=== PATIENT | male | born 1990 | race Caucasian/White ===

== ENCOUNTER 2019-09-09 20:17 | Inpatient (IN) | payer BC, OTHER, SELFPAY ==
[2019-09-09] MEDS ORDERED: LIDOCAINE 1% MPF 5 ML VIAL ONE (21:08)
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
[2019-09-09] MEDS ORDERED: CIPROFLOXACIN 400mg IV 400 MG/200 ML BAG IV ONE (21:30)
[2019-09-09] MEDS ORDERED: TETANUS & DIPHTHERIA TOX,ADULT 0.5 ML VIAL ONE (21:36)
[2019-09-09] MEDS ORDERED: FENTANYL CITR 100 MCG/2 ML ONE (21:36)
[2019-09-09] MEDS ORDERED: ONDANSETRON 4 MG/2 ML VIAL ONE (21:37)
[2019-09-09 21:43] LABS: Absolute Lymphocytes (CBC) 1.4 K/uL (0.7-4.9); Basophils % 0.6 % (0-1.3); Hematocrit 47.8 % (39.6-49.0); Lymphocytes % 16.7 % (15.3-44.8); MPV 8.4 fL (7.6-11.3); RBC Red Blood Cell Count 5.37 M/uL (4.33-5.43)
--- NOTE | 2019-09-09 21:57 | RAD REPORT ---
EXAM DESCRIPTION: RAD - Foot Left 3 View - 09/09/2019 9:15 pm CLINICAL HISTORY: laceration. R/O FB Pain and swelling laceration COMPARISON: No comparisons FINDINGS: Laterally located soft tissue laceration seen. Multiple radiopaque foreign bodies are pres ent in the lateral plantar soft tissues in the region. No fracture evident.
[2019-09-09 22:04] LABS: BUN Blood Urea Nitrogen 16 mg/dL (7-18); Bicarbonate 23 mmol/L (21-32); Glucose Level 92 mg/dL (74-106); Potassium 4.1 mmol/L (3.5-5.1); Sodium Level 139 mmol/L (136-145)
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
[2019-09-10] MEDS ORDERED: ONDANSETRON 4 MG/2 ML VIAL IV PRN (00:33)
[2019-09-10 00:40] VITALS: BMI 38.2
[2019-09-10] MEDS: MORPHINE 2 MG/ML SYR IV PRN ×4 (01:01→16:36)
[2019-09-10] MEDS: Levofloxacin 750mg IV 750 MG/150 ML BAG IV SCH (01:01)
[2019-09-10] MEDS: NA CHLORIDE 0.9% 1,000 ML IV SCH ×3 (01:01→17:42)
[2019-09-10 02:01] LABS: Urine Appearance CLEAR; Urine Bilirubin NEGATIVE (NEG); Urine Blood NEGATIVE (NEG); Urine Color YELLOW; Urine Glucose NEGATIVE (NEG); Urine Protein NEGATIVE (NEG); Urine Specific Gravity 1.025 (1.005-1.030); Urine Urobilinogen 0.2 mg/dL (0.2-1.0)
[2019-09-10 02:02] LABS: Urine Microscopic Reflex NO UMIC
[2019-09-10 05:20] LABS: Protime INR 1.16
[2019-09-10 05:27] LABS: Basophils % 0.4 % (0-1.3); Hematocrit 43.9 % (39.6-49.0); Lymphocytes % 20.4 % (15.3-44.8); MPV 8.4 fL (7.6-11.3); RBC Red Blood Cell Count 4.92 M/uL (4.33-5.43)
[2019-09-10 05:38] LABS: BUN Blood Urea Nitrogen 16 mg/dL (7-18); Bicarbonate 27 mmol/L (21-32); Glucose Level 92 mg/dL (74-106); Phosphorus 4.1 mg/dL (2.5-4.9); Potassium 4.5 mmol/L (3.5-5.1); Sodium Level 139 mmol/L (136-145)
[2019-09-10] MEDS ORDERED: Pharmacy Consult 1 EA XX PRN (11:17)
--- NOTE | 2019-09-10 11:18 | P.PN ---
Subjective Date of Service: 09/10/19 (Hospitalist) Chief Complaint: Laceration to the left foot Subjective: Improving (Patient's condition is stable he is awaiting plastic surgery consult and a laceration to his foot) Review of Systems 10-point ROS is otherwise unremarkable Physical Examination - Vital Signs Temperature: 97.3 F Blood Pressure: 126/90 Pulse: 82 Respirations: 18 Pulse Ox (%): 97 - Physical Exam General: Alert, In no apparent distress, Oriented x3 Respiratory: Clear to auscultation bilaterally Cardiovascular: No edema, Regular rate/rhythm, Normal S1 S2 Gastrointestinal: Normal bowel sounds Integumentary: Other (Left foot wrapped in bandages) - Studies Laboratory Data (last 24 hrs) 09/09/19 21:24: Sodium 139, Potassium 4.1, BUN 16, Creatinine 0.87, Glucose 92 09/09/19 21:24: WBC 8.5, Hgb 16.1, Hct 47.8, Plt Count 241 Assessment & Plan - Problems (Diagnosis) (1) Foreign body (FB) in soft tissue Current Visit: Yes Status: Acute Plan: Patient is 29 years of age from prior medical problems admitted with laceration of the left foot awaiting plastic surgery console vital signs are stable x-ray reviewed calcium foreign body patient is on levofloxacin add vancomycin no evidence of active sepsis
[2019-09-10] MEDS: VANCOMYCIN 2 GM in NA CHLORIDE 0.9% 500 ML IVPB SCH (12:41)
[2019-09-10] MEDS ORDERED: FENTANYL CITR 100 MCG/2 ML ONE ×2 (14:37→15:06)
[2019-09-10] MEDS ORDERED: MIDAZOLAM HCL 2 MG/2 ML INJ ONE (14:37)
[2019-09-10] MEDS ORDERED: propofoL 200 MG/20 ML VIAL IV ONE (14:37)
[2019-09-10 15:40] VITALS: O2SAT 100
[2019-09-10] MEDS: HYDROMORPHONE HCL 1 MG/ML INJ ONE ×2 (15:45→15:50)
[2019-09-10] MEDS ORDERED: ONDANSETRON 4 MG/2 ML VIAL ONE (15:48)
[2019-09-10] MEDS ORDERED: KETOROLAC 30 MG/ML INJ ONE (16:06)
[2019-09-11] MEDS: Levofloxacin 750mg IV 750 MG/150 ML BAG IV SCH
[2019-09-11] MEDS: VANCOMYCIN 2 GM in NA CHLORIDE 0.9% 500 ML IVPB SCH (00:01)
--- NOTE | 2019-09-11 02:49 | OP ---
Surgeon: Terrance Duque MD Preoperative Diagnosis: Open wound, right and left foot. Postoperative Diagnosis: Open wound, right and left foot. Procedure Performed: Debridement of skin and subcutaneous tissue of the right and left foot, remove foreign body of the left foot and simple closure of left. Anesthesia: General. Procedure In Detail: After satisfactory induction of general anesthesia, the feet were prepped with Betadine scrub, Betadine paint, dry sterile drapes applied in the usual manner. A scalpel was used t o excise skin and subcutaneous tissue and the laceration of both feet. The wounds were curetted and the foreign body was removed from the left foot and the wound was jet lavaged, irrigated with 3 L of Betadine solution. The right foot was closed completely with 3-0 Prolene, left foot partially with 3 -0 Prolene. . Dressed with Xeroform, Kerlix. The patient tolerated the procedure well and returned to Recovery. ENEDELIA/RHINA Voice ID: [id number] Report ID: [id number]
[2019-09-11] MEDS: NA CHLORIDE 0.9% 1,000 ML IV SCH (06:33)
[2019-09-11] MEDS: MORPHINE 2 MG/ML SYR IV PRN (06:41)
--- NOTE | 2019-09-11 10:13 | P.PN ---
Subjective Date of Service: 09/11/19 Chief Complaint: Debridement of both feet Subjective: Improving (Patient is doing well no complaints slight tear discomfort) Review of Systems Unremarkable Physical Examination - Vital Signs Temperature: 97.7 F Blood Pressure: 104/66 Pulse: 79 Respirations: 17 Pulse Ox (%): 100 - Physical Exam General: Alert, In no apparent distress, Oriented x3 Respiratory: Clear to auscultation bilaterally Cardiovascular: No edema, Regular rate/rhythm Assessment & Plan - Problems (Diagnosis) (1) Foreign body (FB) in soft tissue Current Visit: Yes Status: Acute Plan: Patient is status post a bride meant of both feet discussed with plastic surgery patient can be discharged home on levofloxacin and doxycycline for 7 days patient to follow up in a week is vital signs are all stable Discharge Plan: Home
--- NOTE | 2019-09-11 10:16 | P.DS ---
Admission Date: 09/09/19 (Hospitalist) Discharge Date: 09/11/19 Disposition: ROUTINE DISCHARGE Discharge Condition: FAIR Reason for Admission: Debridement of both feet - Problems (1) Foreign body (FB) in soft tissue Current Visit: Yes Status: Acute Brief History of Present Illness: Patient is 29 years of age admitted with laceration underwent a bride meant of both feet Hospital Course: He did well no new complaints discuss with plastic surgery can be discharged home on level Floxin and doxycycline vital signs stable at the time of discharge he was alert oriented responsive cooperative with ambulate prior to discharge vital signs stable afebrile to follow-up with lost 6 add Vital Signs/Physical Exam: Temp Pulse Resp BP Pulse Ox 97.7 F 79 17 104/66 100 09/11/19 10:13 09/11/19 10:13 09/11/19 10:13 09/11/19 10:13 09/11/19 10:13 Laboratory Data at Discharge: WBC 9.7 K/uL (4.3-10.9) D 09/10/19 04:28 Hgb 14.9 g/dL (13.6-17.9) 09/10/19 04:28 Hct 43.9 % (39.6-49.0) 09/10/19 04:28 Plt Count 222 K/uL (152-406) 09/10/19 04:28 PT 13.6 SECONDS (9.5-12.5) H 09/10/19 04:28 INR 1.16 09/10/19 04:28 Sodium 139 mmol/L (136-145) 09/10/19 04:28 Potassium 4.5 mmol/L (3.5-5.1) 09/10/19 04:28 BUN 16 mg/dL (7-18) 09/10/19 04:28 Creatinine 0.92 mg/dL (0.55-1.3) 09/10/19 04:28 Glucose 92 mg/dL (74-106) 09/10/19 04:28 Phosphorus 4.1 mg/dL (2.5-4.9) 09/10/19 04:28 Phosphorus Cancelled 09/10/19 04:28 Magnesium 2.0 mg/dL (1.8-2.4) 09/10/19 04:28 Magnesium Cancelled 05/01/20 04:28 Home Medications: Doxycycline Hyclate 100 mg PO BID #14 tablet 09/11/19 Levofloxacin [Levaquin] 500 mg PO DAILY 7 Days #7 tablet 09/11/19 New Medications: Doxycycline Hyclate 100 mg PO BID #14 tablet Levofloxacin [Levaquin] 500 mg PO DAILY 7 Days #7 tablet Patient Discharge Instructions: Patient to call a follow-up with plastic surgery this week. Antibiotic faxed to the pharmacy Diet: Regular
[2019-09-11 11:46] LABS: Hematocrit 41.9 % (39.6-49.0); MPV 8.6 fL (7.6-11.3); RBC Red Blood Cell Count 4.73 M/uL (4.33-5.43)
[2019-09-11 13:10] VITALS: BP 144/70; TEMP 97.5
[2019-09-11] MEDS ORDERED: DOXYCYCLINE 100 MG CAP PO SCH (21:00)
[2019-09-12] MEDS ORDERED: levoFLOXacin 250 MG TAB PO SCH (09:00)
== END 2019-09-11 13:13 | disposition home or self-care (01) | DRG 903 ==
LOC: ER 20:17 → 2ND 23:52 → OBSVTOIN 23:52 → INTOOBSV 23:52 → OBSVTOIN 09-10 12:59
PROVIDERS: ADMIT Internal Medicine; ATTEND Internal Medicine Sleep Medicine
PROC: 0JBQ0ZZ Excision of Right Foot Subcutaneous Tissue and Fascia, Open Approach (ICD-10-PCS; 2019-09-10)
PROC: 0JBR0ZZ Excision of Left Foot Subcutaneous Tissue and Fascia, Open Approach (ICD-10-PCS; principal; 2019-09-10 16:15)
DX: S91.322A Laceration with foreign body, left foot, initial encounter (principal); S91.311A Laceration without foreign body, right foot, initial encounter; F17.200 Nicotine dependence, unspecified, uncomplicated; E66.9 Obesity, unspecified; Z68.38 Body mass index [BMI] 38.0-38.9, adult
CPT/HCPCS: 36415; 80048; 81003; 83735; 84100; 85025; 85027; 85610; 88304; 90471; 90714; 96365; 96375; 99285; J0744; J1170; J2250; J2270; J2405; J2704; J3010; J7030; J7040

== ENCOUNTER 2019-09-21 07:30 | Day surgery (SDC) | payer BC ==
[2019-09-21] MEDS ORDERED: LIDOCAINE 1% MPF 5 ML VIAL ONE (07:49)
[2019-09-21] MEDS ORDERED: propofoL 200 MG/20 ML VIAL IV ONE ×2 (07:49→09:13)
[2019-09-21] MEDS ORDERED: FENTANYL CITR 100 MCG/2 ML ONE ×2 (07:49→09:13)
[2019-09-21] MEDS ORDERED: MIDAZOLAM HCL 2 MG/2 ML INJ ONE ×2 (07:49→09:13)
[2019-09-21] MEDS ORDERED: Ringers Lactate 1,000 ML IV ONE (08:10)
[2019-09-21] MEDS ORDERED: CEFAZOLIN/SWI 1gm 1 GM/10 ML SYR ONE (08:10)
[2019-09-21] MEDS ORDERED: dexAMETHasone 10 MG/ML VIAL ONE (09:14)
[2019-09-21] MEDS ORDERED: LIDOCAINE 2% MPF 5 ML VIAL ONE (09:14)
[2019-09-21] MEDS ORDERED: KETOROLAC 30 MG/ML INJ ONE (09:51)
[2019-09-21] MEDS: HYDROMORPHONE HCL 1 MG/ML INJ ONE ×2 (10:15→10:25)
[2019-09-21] MEDS ORDERED: ONDANSETRON 4 MG/2 ML VIAL ONE (10:21)
[2019-09-21 10:46] VITALS: TEMP 97.1
[2019-09-21 12:55] VITALS: O2SAT 99
[2019-09-21 12:58] VITALS: BP 133/95
--- NOTE | 2019-09-21 19:54 | OP ---
Surgeon: Terrance Duque MD Ems Manager: None. Preoperative Diagnosis: Open wound, left foot. Postoperative Diagnosis: Open wound, left foot. Procedure Performed: Debridement of skin and subcutaneous tissue, simple closure 4 cm wound. Anesthesia: General. Procedure In Detail: After satisfactory induction of general anesthesia left leg was prepped with Be tadine scrub, Betadine paint, dry sterile drapes applied in the usual manner. Curette was used to de bride skin and subcu tissue as needed. The wound was jet lavaged, irrigated, dense skin debrided wit h forceps and scissors. The wound was then closed with 3-0 Prolene simple sutures. Dressed with Xer oform, 2 inch Venus and Kerlix. The patient tolerated the procedure well and returned to Recovery. ENEDELIA/RHINA Voice ID: [id number] Report ID: [id number]
== END 2019-09-21 11:40 | disposition home or self-care (01) ==
LOC: OR 07:30
PROVIDERS: ATTEND Specialist
PROC: 0JQR0ZZ Repair Left Foot Subcutaneous Tissue and Fascia, Open Approach (ICD-10-PCS; principal; 2019-09-21 09:00)
DX: S91.302A Unspecified open wound, left foot, initial encounter (principal); E66.9 Obesity, unspecified; Z68.37 Body mass index [BMI] 37.0-37.9, adult
CPT/HCPCS: 12002; J2704; J2250; J3010; J1100; J1170; J0690; J7120; J2405

== ENCOUNTER 2020-08-14 08:35 | Emergency (ER) | payer BC, OTHER ==
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
[2020-08-14] MEDS ORDERED: LIDOCAINE 1% W/EPI 1:100,000 MDV 20 ML VIAL ONE (10:10)
--- NOTE | 2020-08-14 10:29 | EDPHYS ---
Physician Documentation [facility] Name: Yrn Diaz Age: 30 yrs Sex: Male : 1990 Arrival Date: 08/14/2020 Time: 08:38 Bed 4 Private MD: ED Physician César Velazquez HPI: 08/14 09:48 This 30 yrs old Male presents to ER via Wheelchair with complaints of Head kb Injury-Adult. 09:48 The patient or guardian reports a laceration, 3 cm(s), clean. The complaints affect the kb right side of forehead. Context of injury: The problem was sustained outdoors, resulted from a fall. Onset: The symptoms/episode began/occurred just prior to arrival. Associated signs and symptoms: Loss of consciousness: This patient did not experience any loss of consciousness. Pertinent positives: dazed, injury, Pertinent negatives: the patient has not experienced a loss of conciousness, patient denies any alcohol consumption, nausea, neck pain, seizure, vomiting, generalized weakness. Severity of symptoms: At their worst the symptoms were moderate, in the emergency department the symptoms are unchanged. The patient has not experienced similar symptoms in the past. The patient has not recently seen a physician. Pt reports he was getting gas on his boat and when he jumped down to the inside he slipped causing him to fall and hit head on an inner part of the boat. States he was dazed when it happened, but denies LOC and states he is feeling normal at this time. . Historical: - Allergies: 08:45 No Known Allergies; iw - Home Meds: 08:45 None [Active]; iw - PMHx: 08:45 None; iw - PSHx: 08:45 eye surgery as a child; foot; iw - Immunization history:: Last tetanus immunization: up to date. - Social history:: Smoking status: . ROS: 09:47 Constitutional: Negative for fever, chills, and weight loss, Eyes: Negative for injury, kb pain, redness, and discharge, Respiratory: Negative for shortness of breath, cough, wheezing, and pleuritic chest pain, Abdomen/GI: Negative for abdominal pain, nausea, vomiting, diarrhea, and constipation, Neuro: Negative for headache, weakness, numbness, tingling, and seizure. 09:47 Skin: Positive for laceration(s), of the right side of forehead. Exam: 09:48 Constitutional: This is a well developed, well nourished patient who is awake, alert, kb and in no acute distress. Respiratory: Respirations even and unlabored. No increased work of breathing, no retractions or nasal flaring. MS/ Extremity: Pulses equal, no cyanosis. Neurovascular intact. Full, normal range of motion. Neuro: Awake and alert, GCS 15, oriented to person, place, time, and situation. Moves all extremities. Normal gait. 09:48 Head/face: Noted is no obvious of injury or deformity except hematoma, that is moderate, of the right side of forehead, a laceration(s), that is superficial, 3 cm(s), of the right side of forehead. 09:48 Skin: injury, laceration(s), the wound is approximately 3 cm(s), of the right side of forehead, that can be described as clean, no foreign body, irregular, with moderate bleeding. Vital Signs: 08:41 Pulse 82; Resp 16; Pulse Ox 100% on R/A; iw 08:45 BP 155 / 105; Pulse 66; Resp 17; Pulse Ox 99% on R/A; tw2 10:00 BP 146 / 86; Pulse 64; Resp 16; Pulse Ox 99% on R/A; hb 10:51 BP 141 / 79; Pulse 71; Pulse Ox 99% on R/A; sr5 [place] Coma Score: 09:47 Eye Response: spontaneous(4). Verbal Response: oriented(5). Motor Response: obeys kb commands(6). Total: 15. 09:48 Eye Response: spontaneous(4). Verbal Response: oriented(5). Motor Response: obeys kb commands(6). Total: 15. Laceration: 10:27 Wound Repair of 3cm ( 1.2in ) subcutaneous laceration to right side of forehead. Linear kb shaped.. Distal neuro/vascular/tendon intact. Anesthesia: Wound infiltrated with 4 mls of 1% lidocaine w/ Epi. Wound prep: Extensive cleansing with hibiclenz by me, Wound irrigation with saline by md. Skin closed with 8 5-0 fast absorbing gut using simple sutures and sterile technique. Patient tolerated well. MDM: 09:05 Patient medically screened. kb 09:47 Data reviewed: vital signs, nurses notes. Data interpreted: Pulse oximetry: on room air kb is 100 %. Interpretation: normal. Counseling: I had a detailed discussion with the patient and/or guardian regarding: the historical points, exam findings, and any diagnostic results supporting the discharge/admit diagnosis, radiology results, the need for outpatient follow up, a family practitioner, to return to the emergency department if symptoms worsen or persist or if there are any questions or concerns that arise at home. 10:27 ED course: one internal sutures, 7 external sutures. kb 08/14 08:41 Order name: CT Head Brain wo Cont; Complete Time: 09:26 iw 08/14 09:43 Order name: Dressing - Wound; Complete Time: 10:50 kb 08/14 09:43 Order name: Gloves, Sterile; Complete Time: 09:55 kb 08/14 09:43 Order name: Setup Suture Tray; Complete Time: 09:55 kb Administered Medications: 09:55 Drug: Lidocaine-Epinephrine -1%: (1:100,000) 1 vials {Note: by ISABELL Guerrero.} Volume: 20 tw2 ml; Route: Infiltration; Disposition: 15:12 Co-signature as Attending Physician, César Velazquez MD. rn Disposition: 08/14/20 10:28 Discharged to Home. Impression: Superficial injury of head, Laceration without foreign body of scalp. - Condition is Stable. - Discharge Instructions: Hematoma, Olvm-[id number], Laceration Care, Adult, [id number], Head Injury, Adult, [id number]. - Medication Reconciliation Form, Thank You Letter, Antibiotic Education, Prescription Opioid Use form. - Follow up: Emergency Department; When: As needed; Reason: Worsening of condition. Follow up: Private Physician; When: 2 - 3 days; Reason: Recheck today's complaints, Continuance of care, Re-evaluation by your physician. Signatures: Dispatcher [employer] Yolanda Casanova FNP-C FNP-Elissa Romero, César Bryson RN, MD MD rn Baxter, Heather, RN RN hb Wise, Tara, RN RN tw2 Corrections: (The following items were deleted from the chart) 09:51 09:48 Head/face: Noted is no obvious of injury or deformity except a laceration(s), kb that is superficial, 3 cm(s), of the right side of forehead, kb 09:51 09:48 Skin: injury, laceration(s), the wound is approximately 3 cm(s), of the right kb side of forehead, that can be described as clean, no foreign body, irregular, with moderate bleeding, kb 10:55 10:28 08/14/2020 10:28 Discharged to Home. Impression: Superficial injury of head; hb Laceration without foreign body of scalp. Condition is Stable. Forms are Medication Reconciliation Form, Thank You Letter, Antibiotic Education, Prescription Opioid Use. Follow up: Emergency Department; When: As needed; Reason: Worsening of condition. Follow up: Private Physician; When: 2 - 3 days; Reason: Recheck today's complaints, Continuance of care, Re-evaluation by your physician. kb
--- NOTE | 2020-08-14 10:29 | ER ---
Nurse's Notes [facility] Name: Yrn Diaz Age: 30 yrs Sex: Male : 1990 Arrival Date: 08/14/2020 Time: 08:38 Bed 4 Private MD: Diagnosis: Superficial injury of head;Laceration without foreign body of scalp Presentation: 08/14 08:41 Chief complaint: Patient states: was attempting to put gas in his boat, stepped out and iw hit head against his boat, laceration to right side of head , pt denies LOC but states he was stunned. Coronavirus screen: At this time, the client does not indicate any symptoms associated with coronavirus-19. Ebola Screen: Patient negative for fever greater than or equal to 101.5 degrees Fahrenheit, and additional compatible Ebola Virus Disease symptoms Patient denies exposure to infectious person. Patient denies travel to an Ebola-affected area in the 21 days before illness onset. No symptoms or risks identified at this time. Initial Sepsis Screen: Does the patient meet any 2 criteria? No. Patient's initial sepsis screen is negative. Does the patient have a suspected source of infection? No. Patient's initial sepsis screen is negative. Risk Assessment: Do you want to hurt yourself or someone else? Patient reports no desire to harm self or others. Onset of symptoms was August 14, 2020. 08:41 Method Of Arrival: Wheelchair 08:41 Acuity: CARON 3 iw Historical: - Allergies: 08:45 No Known Allergies; iw - Home Meds: 08:45 None [Active]; iw - PMHx: 08:45 None; iw - PSHx: 08:45 eye surgery as a child; foot; iw - Immunization history:: Last tetanus immunization: up to date. - Social history:: Smoking status: . Screenin:46 Abuse screen: Denies threats or abuse. Denies injuries from another. Nutritional hb screening: No deficits noted. Tuberculosis screening: No symptoms or risk factors identified. Fall Risk None identified. Assessment: 08:55 General: Appears in no apparent distress. Behavior is calm, cooperative. Pain: Pain hb currently is 6 out of 10 on a pain scale. Neuro: Level of Consciousness is awake, alert, obeys commands, Oriented to person, place, time, situation. Cardiovascular: Patient's skin is warm and dry. Respiratory: Respiratory effort is even, unlabored, Respiratory pattern is regular, symmetrical. GI: No signs and/or symptoms were reported involving the gastrointestinal system. : No signs and/or symptoms were reported regarding the genitourinary system. EENT: No signs and/or symptoms were reported regarding the EENT system. Derm: Skin is pink, warm \T\ dry. Musculoskeletal: No signs and/or symptoms reported regarding the musculoskeletal system. Injury Description: Laceration sustained to right side of forehead is full thickness, 2.6 to 7.5 cm long, bleeding moderately, with pulsatile bleeding. 09:45 Reassessment: Patient appears in no apparent distress at this time. Patient and/or hb family updated on plan of care and expected duration. Pain level reassessed. Patient is alert, oriented x 3, equal unlabored respirations, skin warm/dry/pink. 10:12 Reassessment: RACHEL Guerrero at bedside for laceration repair. hb 10:52 Reassessment: Pt AA\T\Ox4, ZHAO, equal unlabored resp, skin warm/dry/nc, wound care sr5 provided using NS, bandage applied. Discharge instructions provided: head injury and wound care. Steady gait out of ER. Vital Signs: 08:41 Pulse 82; Resp 16; Pulse Ox 100% on R/A; iw 08:45 BP 155 / 105; Pulse 66; Resp 17; Pulse Ox 99% on R/A; tw2 10:00 BP 146 / 86; Pulse 64; Resp 16; Pulse Ox 99% on R/A; hb 10:51 BP 141 / 79; Pulse 71; Pulse Ox 99% on R/A; sr5 [place] Coma Score: 09:47 Eye Response: spontaneous(4). Verbal Response: oriented(5). Motor Response: obeys kb commands(6). Total: 15. 09:48 Eye Response: spontaneous(4). Verbal Response: oriented(5). Motor Response: obeys kb commands(6). Total: 15. ED Course: 08:38 Patient arrived in ED. bd 08:44 Triage completed. iw 08:45 Lorena Hunter, RN is Primary Nurse. hb 08:45 Arm band placed on. hb 08:46 Patient has correct armband on for positive identification. Bed in low position. Call hb light in reach. 09:00 CT Head Brain wo Cont In Process Unspecified. EDMS 09:05 Yolanda Xiao FNP-C is [facility]. kb 09:05 César Velazquez MD is Attending Physician. kb 10:51 Patient did not have IV access during this emergency room visit. Dressings: Band aid x sr5 1 right side of forehead. 10:52 Pulse ox on. NIBP on. sr5 10:52 Assist provider with laceration repair on right side of forehead using sutures. sr5 Performed by Yolanda EDDY Dressed with band aid, Neosporin, Patient tolerated well. Administered Medications: 09:55 Drug: Lidocaine-Epinephrine -1%: (1:100,000) 1 vials {Note: by FNP. Yolanda} Volume: 20 tw2 ml; Route: Infiltration; Outcome: 10:28 Discharge ordered by MD. kb 10:52 Discharged to home ambulatory. sr5 10:52 Condition: stable 10:52 Discharge instructions given to patient, Instructed on discharge instructions, follow up and referral plans. wound care, head injury Demonstrated understanding of instructions, follow-up care, wound care, head injury precautions 10:55 Patient left the ED. hb Signatures: Dispatcher [employer] EDMS Yolanda Xiao FNP-C FNP-Ckb Dirrim, Barbara bd Williams, Irene, EDILMA FRANCE Lorena Hunter RN RN Nhung Saucedo RN RN tw2 Brando Iqbal RN RN sr5 Corrections: (The following items were deleted from the chart) 08:45 08:41 Acuity: CARON 4 [facility]
[2020-08-14 12:26] VITALS: O2SAT 100
== END 2020-08-14 10:55 | disposition home or self-care (01) ==
LOC: ER 08:35
PROC: 0HQ1XZZ Repair Face Skin, External Approach (ICD-10-PCS; principal; 2020-08-14)
DX: S01.81XA Laceration without foreign body of other part of head, initial encounter (principal); V93.33XA Fall on board other powered watercraft, initial encounter
CPT/HCPCS: 70450; 99284

== ENCOUNTER 2022-11-24 17:43 | Emergency (ER) | payer BC ==
[2022-11-24] MEDS ORDERED: LIDOCAINE 2% MPF 5 ML VIAL ONE (19:05)
--- NOTE | 2022-11-24 19:31 | ER ---
Nurse's Notes [facility] Name: Yrn Diaz Age: 32 yrs Sex: Male : 1990 Arrival Date: 11/24/2022 Time: 17:43 Bed 23 Private MD: Vikas Joyce Diagnosis: Laceration without foreign body of left thumb without damage to nail, initial encounter Presentation: 11/24 18:05 Chief complaint: Patient states: was using my pocket knife, cut the corner of my left iw thumb. Coronavirus screen: At this time, the client does not indicate any symptoms associated with coronavirus-19. Ebola Screen: Patient negative for fever greater than or equal to 101.5 degrees Fahrenheit, and additional compatible Ebola Virus Disease symptoms Patient denies exposure to infectious person. Patient denies travel to an Ebola-affected area in the 21 days before illness onset. No symptoms or risks identified at this time. Initial Sepsis Screen: Does the patient meet any 2 criteria? No. Patient's initial sepsis screen is negative. Does the patient have a suspected source of infection? No. Patient's initial sepsis screen is negative. Risk Assessment: Do you want to hurt yourself or someone else? Patient reports no desire to harm self or others. Onset of symptoms was November 24, 2022. 18:05 Method Of Arrival: Ambulatory iw 18:05 Acuity: CARON 4 iw Triage Assessment: 19:46 General: Appears in no apparent distress. Behavior is calm, cooperative. Pain: rv Complains of pain in left hand. Neuro: Level of Consciousness is awake, alert, obeys commands, Oriented to person, place, time, situation. Cardiovascular: Capillary refill < 3 seconds. Respiratory: Airway is patent Respiratory effort is even, unlabored. GI: No signs and/or symptoms were reported involving the gastrointestinal system. : No signs and/or symptoms were reported regarding the genitourinary system. Derm: Skin is intact. Musculoskeletal: Circulation, motion, and sensation intact. Range of motion: intact in all extremities. Injury Description: Laceration sustained to left hand. Historical: - Allergies: 18:06 No Known Allergies; iw - Home Meds: 18:06 losartan oral [Active]; iw - PMHx: 18:06 Hypertensive disorder; iw - PSHx: 18:06 feet; iw - Immunization history:: Adult Immunizations up to date. - Social history:: Smoking status: . Screenin:46 [facility] ED Fall Risk Assessment (Adult) History of falling in the last 3 months, rv including since admission No falls in past 3 months (0 pts) Confusion or Disorientation No (0 pts) Intoxicated or Sedated No (0 pts) Impaired Gait No (0 pts) Mobility Assist Device Used No (0 pt) Altered Elimination No (0 pt) Score/Fall Risk Level 0 - 2 = Low Risk Oriented to surroundings, Maintained a safe environment, Educated pt \T\ family on fall prevention, incl call for assistance when getting out of bed, Assessed \T\ reinforced patient's understanding of fall precautions, Provided non-skid footwear, Hourly rounding (assess needs \T\ fall precautionary measures) done, Used ambulatory aids as needed (educated on \T\ assisted with), Used gait belt as appropriate. Abuse screen: Denies threats or abuse. Denies injuries from another. Nutritional screening: No deficits noted. Tuberculosis screening: No symptoms or risk factors identified. Vital Signs: 18:05 BP 152 / 109; Pulse 65; Resp 16; Temp 98.8; Pulse Ox 97% on R/A; Weight 127.01 kg; iw Height 5 ft. 11 in. ; Pain 0/10; 18:05 Body Mass Index 39.05 (127.01 kg, 180.34 cm) iw 18:05 Pain Scale: Adult iw ED Course: 17:45 Patient arrived in ED. am2 17:45 Vikas Joyce MD is Private Physician. am2 17:47 Mathew Nichols PA is PHCP. cp 17:47 Mathew Chahal MD is Attending Physician. cp 18:06 Triage completed. iw 18:07 Arm band placed on. iw 18:24 Shiloh Landrum, RN is Primary Nurse. jl7 19:38 Primary Nurse role handed off by Shiloh Landrum RN jl7 19:39 Jesus Chilel RN is Primary Nurse. rv 19:45 Assist provider with laceration repair on left hand that was between 2.6 to 7.5 cm rv using sutures. Set up tray. Performed by Mathew BROWN Dressed with 4X4s, splint Patient tolerated well. Patient did not have IV access during this emergency room visit. 19:47 Patient has correct armband on for positive identification. Placed in gown. Bed in low rv position. Call light in reach. Side rails up X 1. Provided Education on: wound care. Administered Medications: 19:45 Drug: Lidocaine Infiltration (2 %) 5 ml {Note: administered by provider.} Volume: 5 ml; rv Route: Infiltration; Medication: 19:47 VIS not applicable for this client. rv Outcome: 19:30 Discharge ordered by MD. cp 19:48 Discharged to home ambulatory. rv 19:48 Condition: good 19:48 Discharge instructions given to patient, Instructed on discharge instructions, follow up and referral plans. Demonstrated understanding of instructions, follow-up care, wound care. 19:48 Patient left the ED. rv Signatures: Elissa Burr, RN RN iw Mathew Nichols PA PA cp Leal, Jahala, RN RN jl7 Monica Mackay am2 Jesus Chilel RN RN rv Corrections: (The following items were deleted from the chart) 18:07 18:06 Allergies: No Known Allergies; iw iw 18:07 18:06 Allergies: Losartan; iw iw
--- NOTE | 2022-11-24 19:31 | EDPHYS ---
Physician Documentation [facility] Name: Yrn Diaz Age: 32 yrs Sex: Male : 1990 Arrival Date: 11/24/2022 Time: 17:43 Bed 23 Private MD: Vikas Joyce ED Physician Mathew Chahal HPI: 11/24 18:45 This 32 yrs old Male presents to ER via Ambulatory with complaints of Thumb Injury, cp Laceration. 18:45 The patient or guardian reports a laceration, clean. The complaints affect the proximal cp phalanx of left thumb. Context: resulted from using clean knife. Onset: The symptoms/episode began/occurred just prior to arrival. Associated signs and symptoms: Pertinent positives: numbness distally. 18:45 Severity of symptoms: in the emergency department the symptoms have improved, mildly. cp Historical: - Allergies: 18:06 No Known Allergies; iw - Home Meds: 18:06 losartan oral [Active]; iw - PMHx: 18:06 Hypertensive disorder; iw - PSHx: 18:06 feet; iw - Immunization history:: Adult Immunizations up to date. - Social history:: Smoking status: . ROS: 18:50 Constitutional: Negative for body aches, chills, fever, poor PO intake. cp 18:50 Eyes: Negative for injury, pain, redness, and discharge. cp 18:50 ENT: Negative for drainage from ear(s), ear pain, sore throat, difficulty swallowing, difficulty handling secretions. 18:50 Cardiovascular: Negative for chest pain, palpitations. 18:50 Respiratory: Negative for cough, shortness of breath, wheezing. 18:50 Abdomen/GI: Negative for abdominal pain, nausea, vomiting, and diarrhea. 18:50 Skin: Positive for laceration(s), of the ulna side of proximal phalanx of left thumb. 18:50 Neuro: Positive for numbness, of the ulna side of left thumb. 18:50 All other systems are negative. Exam: 18:55 Constitutional: The patient appears in no acute distress, alert, awake, non-toxic, well cp developed, well nourished. 18:55 Head/Face: Normocephalic, atraumatic. cp 18:55 Eyes: Periorbital structures: appear normal, Sclera: no appreciated abnormality, Lids and lashes: appear normal, bilaterally. 18:55 ENT: External ear(s): are unremarkable, Nose: is normal, Posterior pharynx: Airway: no evidence of obstruction, patent. 18:55 Chest/axilla: Inspection: normal. 18:55 Cardiovascular: Rate: normal. 18:55 Respiratory: the patient does not display signs of respiratory distress, Respirations: normal, no use of accessory muscles, no retractions, labored breathing, is not present, Breath sounds: are clear throughout, no decreased breath sounds, no stridor, no wheezing. 18:55 Abdomen/GI: Inspection: abdomen appears normal. 18:55 Musculoskeletal/extremity: Extremities: grossly normal except: noted in the left thumb: laceration noted ulna side of proximal phalanx with mild bleeding noted, no signs of tendon injury, full AROM of left thumb, mild numbness noted distal to laceration ulna side of left thumb. Vital Signs: 18:05 BP 152 / 109; Pulse 65; Resp 16; Temp 98.8; Pulse Ox 97% on R/A; Weight 127.01 kg; iw Height 5 ft. 11 in. ; Pain 0/10; 18:05 Body Mass Index 39.05 (127.01 kg, 180.34 cm) iw 18:05 Pain Scale: Adult iw Laceration: 19:24 Wound Repair of 2cm ( 0.8in ) subcutaneous laceration to ulna side of proximal phalanx cp left thumb. Linear shaped.. Distal neuro/vascular/tendon intact. Anesthesia: Wound infiltrated with 3 mls of 2% lidocaine. Wound prep: Moderate cleansing by me, Wound irrigation by me. Skin closed with 3 4-0 Prolene using interrupted sutures and sterile technique. Dressed with Bacitracin, 4x4's. Patient tolerated well. MDM: 18:09 Patient medically screened. cp 19:00 Differential diagnosis: open fracture, simple laceration, vascular injury, nerve injury.cp 19:30 Data reviewed: vital signs, nurses notes, and as a result, I will discharge patient. cp 19:30 Counseling: I had a detailed discussion with the patient and/or guardian regarding: the cp historical points, exam findings, and any diagnostic results supporting the discharge/admit diagnosis, to return to the emergency department if symptoms worsen or persist or if there are any questions or concerns that arise at home. Response to treatment: the patient's symptoms have markedly improved after treatment, and as a result, I will discharge patient. 11/24 18:39 Order name: Dressing - Wound; Complete Time: 19:45 cp 11/24 18:39 Order name: Gloves, Sterile; Complete Time: 19:45 cp 11/24 18:39 Order name: Setup Suture Tray; Complete Time: 19:45 cp 11/24 19:24 Order name: Wound dressing; Complete Time: 19:45 cp 11/24 19:24 Order name: Thumb Spica Splint; Complete Time: 19:45 cp Administered Medications: 19:45 Drug: Lidocaine Infiltration (2 %) 5 ml {Note: administered by provider.} Volume: 5 ml; rv Route: Infiltration; Disposition Summary: 11/24/22 19:30 Discharge Ordered Location: Home cp Problem: new cp Symptoms: have improved cp Condition: Stable cp Diagnosis - Laceration without foreign body of left thumb without damage to nail, initial cp encounter Followup: cp - With: Private Physician - When: 10 - 14 days - Reason: Staple/Suture removal Discharge Instructions: - Discharge Summary Sheet cp - Laceration Care, Adult cp - Sutured Wound Care cp Forms: - Medication Reconciliation Form cp - Thank You Letter cp - Antibiotic Education cp - Prescription Opioid Use cp - Patient Portal Instructions cp - Work release form rv Signatures: Elissa Burr RN RN Mathew Simmons PA PA cp Jesus Chilel RN RN rv Corrections: (The following items were deleted from the chart) 18:07 18:06 Allergies: No Known Allergies; [facility] 18:07 18:06 Allergies: Losartan; [facility]
[2022-11-24 19:53] VITALS: BP 152/109; TEMP 98.8; O2SAT 97
== END 2022-11-24 19:48 | disposition home or self-care (01) ==
LOC: ER 17:43
PROC: 0HQGXZZ Repair Left Hand Skin, External Approach (ICD-10-PCS; principal; 2022-11-24)
DX: S61.012A Laceration without foreign body of left thumb without damage to nail, initial encounter (principal); I10 Essential (primary) hypertension
CPT/HCPCS: 99283; 12001; J2001

== ENCOUNTER 2023-10-07 01:26 | Emergency (ER) | payer BC ==
[2023-10-07] MEDS ORDERED: TETRACAINE HCL 0.5% 4ML OPTH ONE (02:28)
[2023-10-07] MEDS ORDERED: TDAP (DIPHTH,PERTUSS(ACELL),TET VAC) 0.5 ML VIAL IMVAC ONE (02:28)
[2023-10-07] MEDS ORDERED: ERYTHROMYCIN 3.5GM OPTH OINT ONE (02:29)
[2023-10-07] MEDS ORDERED: FLUORESCEIN SODIUM 1 MG/WRAP ONE (02:33)
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
[2023-10-07] MEDS ORDERED: CEPHALEXIN 250 MG CAP ONE (03:29)
[2023-10-07 03:42] VITALS: TEMP 98.6
[2023-10-07 04:06] VITALS: BP 149/98; O2SAT 99
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
== END 2023-10-07 03:35 | disposition home or self-care (01) ==
LOC: ER 01:26
DX: S02.31XA Fracture of orbital floor, right side, initial encounter for closed fracture (principal); S05.01XA Injury of conjunctiva and corneal abrasion without foreign body, right eye, initial encounter
CPT/HCPCS: 70450; 96372; 99284